=== PATIENT | male | born 1945 | race Two or more races ===

== ENCOUNTER 2019-01-11 18:47 | Emergency (ER) | payer OTHER ==
[~2019-01-11] VITALS: Ht 167.6 cm; Wt 106.6 kg
[~2019-01-11 18:47] MED LIST: CARVEDILOL12.5 MG PO; CIPROFLOXACIN750 MG PO; CLONAZEPAM1 MG PO; DOCUSATE SODIU100 MG PO; GABAPENTIN400 MG PO; GABAPENTIN800 MG PO; LIPITOR20 MG PO; METFORMIN HCL500 MG PO; PERCOCET 5-3251 EACH PO; TELMISARTAN-HC1 EACH PO
[2019-01-11] MEDS ORDERED: MECLIZINE HCL12.5 MG (19:37)
[2019-01-11] MEDS ORDERED: ASPIR 8181 MG (19:37)
[2019-01-11] MEDS ORDERED: VITAMIN D34000 UNIT (19:37)
== END 2019-01-11 23:20 | disposition home or self-care (01) ==
LOC: ER 18:47
DX: R42 Dizziness and giddiness (principal); H93.13 Tinnitus, bilateral